=== PATIENT | male | born 1950 | race Caucasian/White ===

== ENCOUNTER 2022-06-24 18:04 | Inpatient (IN) | payer OTHER, MEDICARE ==
[2022-06-24] MEDS ORDERED: Morphine 2 MG/ML VIAL SLOW IVP PRN (18:59)
[2022-06-24] MEDS ORDERED: Dextrose 5% in Water 1,000 ML IV PRN (18:59)
[2022-06-24] MEDS ORDERED: Dextrose 50% Abboject 50 ML SYRINGE SLOW IVP PRN (18:59)
[2022-06-24] MEDS ORDERED: TETANUS, DIPHTHERIA TOX,ADULT (TDVAX) 0.5 ML VIAL IM ONE (18:59)
[2022-06-24] MEDS ORDERED: Ondansetron PF 4 MG/2 ML Vial IVP PRN (19:01)
[2022-06-24] MEDS ORDERED: Ondansetron ODT 4 MG TAB PO PRN (19:01)
[2022-06-24] MEDS ORDERED: traMADol HCl 50 MG TAB PO PRN (19:03)
[2022-06-24] MEDS ORDERED: Sodium Chloride 0.9% 1,000 ML IV SCH (19:15)
[2022-06-24 19:42] LABS: INR-International Normal Ratio 0.9; PTT 26.1 sec (22.9-36.1); Prothrombin Time 12.8 sec (12.0-14.7)
[2022-06-24] MEDS: Acetaminophen 325 MG TAB PO SCH (20:15)
[2022-06-24] MEDS: traMADol HCl 50 MG TAB PO SCH (20:15)
[2022-06-24] MEDS: Ibuprofen 200 MG TAB PO SCH (20:16)
[2022-06-24] MEDS: Famotidine 20 MG TAB PO SCH (20:16)
[2022-06-24] MEDS ORDERED: Oxazepam 10 MG CAP PO SCH (21:00)
[2022-06-24] MEDS ORDERED: Lactated Ringer's 1,000 ML IV SCH (23:00)
[2022-06-25 01:34] VITALS: BMI 21.2
[2022-06-25] MEDS: Acetaminophen 325 MG TAB PO SCH ×4 (02:44→21:17)
[2022-06-25] MEDS: traMADol HCl 50 MG TAB PO SCH ×4 (02:44→21:17)
[2022-06-25] MEDS: Ibuprofen 200 MG TAB PO SCH ×3 (04:25→21:15)
[2022-06-25 06:44] LABS: #Eosinphils 0.2 thou/uL (0.0-0.7); #Lymphocytes 0.8 thou/uL (1.20-3.40); #Monocytes 0.8 thou/uL (0.11-0.59); %Basophils 0.4 % (0.0-1.0); %Lymphocytes 10.7 % (21.0-51.0); %Neutrophils 76.9 % (42.0-75.0); Hemoglobin 12.7 g/dL (14.0-18.0); Mean Corpuscular HGB CONC 34.1 g/dL (32.0-36.0); Mean Corpuscular Hemoglobin 34.9 pg (27.0-31.0); Platelet Count 264 10x3/uL (130-400); RBC Distribution Width 12.2 % (11.5-14.5); Red Blood Cell (RBC) Count 3.64 mill/uL (4.70-6.10); White Blood Cell (WBC) Count 7.7 10x3/uL (4.8-10.8)
[2022-06-25 07:10] LABS: Anion Gap 14 mmol/L (10-20); BUN (Urea Nitrogen) 9 mg/dL (8.4-25.7); Calc. Creatinine Clearance 95 mL/min (70-130); Calcium 8.6 mg/dL (7.8-10.44); Carbon Dioxide 21 mmol/L (23-31); Chloride 90 mmol/L (98-107); Estimated GFR 101; Glucose 93 mg/dL (83-110); Magnesium 1.9 mg/dL (1.6-2.6); Phosphorus 3.1 mg/dL (2.3-4.7); Potassium 3.6 mmol/L (3.5-5.1); Sodium 121 mmol/L (136-145)
[2022-06-25] MEDS ORDERED: Sodium Chloride 0.9% 1,000 ML IV SCH (08:15)
[2022-06-25] MEDS ORDERED: CEFAZOLIN 2 GM in Sodium Chloride 0.9% 100 ML IVPB SCH (08:30)
[2022-06-25 10:12] LABS: Bacteria/HPF None Seen HPF (None Seen); Bilirubin Negative (Negative); Blood, Urine Negative (Negative); Clarity Clear (Clear); Glucose, Urine (Dipstick) 70 mg/dL (Negative); Ketone, Urine 20 mg/dL (Negative); Leukocyte Negative Leu/uL (Negative); Nitrite Negative (Negative); Protein, Urine (Dipstick) Negative (Neg-Trace); RBC/HPF 0-3 HPF (0-3); Specific Gravity, Urine 1.012 (1.002-1.036); Squamous Epithelial None Seen HPF (0-3); Urobilinogen Normal mg/dL (Less than 2); WBC/HPF 0-3 HPF (0-3); pH, Urine 6.5 (5.0-9.0)
[2022-06-25] MEDS: Ferrous Sulfate 325 MG TAB PO SCH ×2 (11:27→17:08)
[2022-06-25] MEDS: Oxazepam 10 MG CAP PO SCH ×3 (11:27→21:18)
[2022-06-25] MEDS: Ascorbic Acid 500 mg Chewable Tablet PO SCH (11:28)
[2022-06-25] MEDS: Tamsulosin HCl 0.4 MG CAP PO SCH (11:29)
[2022-06-25] MEDS: Famotidine 20 MG TAB PO SCH ×2 (11:32→21:17)
[2022-06-25] MEDS: Folic Acid 1 MG TAB PO SCH (15:16)
[2022-06-25] MEDS: Thiamine 100 MG TAB PO SCH (15:17)
[2022-06-26] MEDS: Ibuprofen 200 MG TAB PO SCH ×3 (02:55→22:41)
[2022-06-26] MEDS: Acetaminophen 325 MG TAB PO SCH ×5 (02:56→22:43)
[2022-06-26] MEDS: traMADol HCl 50 MG TAB PO SCH ×4 (02:56→22:42)
[2022-06-26 07:14] LABS: #Basophils 0.1 thou/uL (0.0-0.2); #Eosinphils 0.3 thou/uL (0.0-0.7); #Monocytes 0.9 thou/uL (0.11-0.59); #Neutrophils 4.7 thou/uL (1.40-6.50); %Basophils 0.8 % (0.0-1.0); %Eosinophils 4.8 % (0.0-10.0); %Lymphocytes 14.3 % (21.0-51.0); Hemoglobin 12.1 g/dL (14.0-18.0); Mean Corpuscular HGB CONC 35.6 g/dL (32.0-36.0); Mean Corpuscular Hemoglobin 36.9 pg (27.0-31.0); Mean Platelet Volume 6.1 fL (7.4-10.4); Platelet Count 209 10x3/uL (130-400); RBC Distribution Width 12.3 % (11.5-14.5); Red Blood Cell (RBC) Count 3.28 mill/uL (4.70-6.10); White Blood Cell (WBC) Count 7.1 10x3/uL (4.8-10.8)
[2022-06-26 08:22] LABS: Anion Gap 12 mmol/L (10-20); BUN (Urea Nitrogen) 13 mg/dL (8.4-25.7); Calc. Creatinine Clearance 88 mL/min (70-130); Calcium 8.3 mg/dL (7.8-10.44); Carbon Dioxide 22 mmol/L (23-31); Chloride 91 mmol/L (98-107); Estimated GFR 99; Glucose 102 mg/dL (83-110); Magnesium 1.9 mg/dL (1.6-2.6); Phosphorus 3.2 mg/dL (2.3-4.7); Potassium 3.4 mmol/L (3.5-5.1); Sodium 122 mmol/L (136-145)
[2022-06-26] MEDS ORDERED: Potassium Chloride 20 MEQ TAB PO SCH (09:00)
[2022-06-26] MEDS: Oxazepam 10 MG CAP PO SCH ×3 (09:26→22:41)
[2022-06-26] MEDS: Famotidine 20 MG TAB PO SCH ×2 (09:26→22:43)
[2022-06-26] MEDS: Tamsulosin HCl 0.4 MG CAP PO SCH (09:26)
[2022-06-26] MEDS: Ferrous Sulfate 325 MG TAB PO SCH ×2 (09:33→18:08)
[2022-06-26] MEDS: Folic Acid 1 MG TAB PO SCH ×2 (09:34→10:56)
[2022-06-26] MEDS: Thiamine 100 MG TAB PO SCH ×2 (09:34→10:56)
[2022-06-26] MEDS: Ascorbic Acid 500 mg Chewable Tablet PO SCH ×2 (09:34→10:56)
[2022-06-26] MEDS ORDERED: Sodium Phosphate 15 MMOL in Sodium Chloride 0.9% 250 ML 250 ML IVPB SCH (11:30)
[2022-06-26] MEDS ORDERED: Sodium Chloride 0.9% 100 ML ONE ×2 (11:54→12:27)
[2022-06-26] MEDS ORDERED: CEFAZOLIN 2 GM VIAL ONE ×2 (11:54→12:27)
[2022-06-26] MEDS ORDERED: fentaNYL PF 100 MCG/2 ML SYRINGE ONE (12:14)
[2022-06-26] MEDS ORDERED: NEOSTIGMINE 3 MG/3 ML SYR 3 MG/3 ML SYRINGE ONE (12:41)
[2022-06-26] MEDS ORDERED: Ondansetron PF 4 MG/2 ML Vial ONE (12:41)
[2022-06-26] MEDS ORDERED: Rocuronium Bromide 10 MG/ML (10ML VIAL) ONE (12:41)
[2022-06-26] MEDS ORDERED: Lidocaine 1% PF 5 ML VIAL ONE (12:41)
[2022-06-26] MEDS ORDERED: PHENYLEPHRINE-NS 100 MCG/ML 10 ML SYRINGE ONE (12:41)
[2022-06-26] MEDS ORDERED: Glycopyrrolate 0.2 MG/ML 5 ML SYRINGE ONE (12:41)
[2022-06-26] MEDS ORDERED: PROPOFOL 200 MG/20 ML VIAL ONE (12:41)
[2022-06-26] MEDS ORDERED: Ondansetron HCl/PF 4 MG/2 ML Vial IVP PRN (13:54)
[2022-06-26] MEDS ORDERED: Promethazine HCl 25 MG/ML VIAL IM PRN (13:54)
[2022-06-26 16:35] LABS: Potassium 4.1 mmol/L (3.5-5.1); Sodium 124 mmol/L (136-145)
[2022-06-26] MEDS ORDERED: Aspirin 81 mg Enteric Coated Tablet PO SCH (21:00)
[2022-06-26] MEDS: CEFAZOLIN 2 GM in Sodium Chloride 0.9% 100 ML IVPB SCH (22:41)
[2022-06-27] MEDS: traMADol HCl 50 MG TAB PO SCH ×4 (02:52→20:37)
[2022-06-27] MEDS: Acetaminophen 325 MG TAB PO SCH ×4 (02:52→20:36)
[2022-06-27] MEDS: Ibuprofen 200 MG TAB PO SCH ×3 (05:08→20:36)
[2022-06-27] MEDS: CEFAZOLIN 2 GM in Sodium Chloride 0.9% 100 ML IVPB SCH (05:08)
[2022-06-27 06:24] LABS: #Basophils 0.1 thou/uL (0.0-0.2); #Lymphocytes 0.6 thou/uL (1.20-3.40); #Neutrophils 6.7 thou/uL (1.40-6.50); %Basophils 0.6 % (0.0-1.0); %Eosinophils 0.2 % (0.0-10.0); %Lymphocytes 7.7 % (21.0-51.0); %Monocytes 11.4 % (0.0-10.0); Hemoglobin 11.3 g/dL (14.0-18.0); Mean Corpuscular HGB CONC 35.1 g/dL (32.0-36.0); Mean Corpuscular Hemoglobin 36.4 pg (27.0-31.0); Mean Platelet Volume 6.4 fL (7.4-10.4); Platelet Count 209 10x3/uL (130-400); RBC Distribution Width 12.1 % (11.5-14.5); Red Blood Cell (RBC) Count 3.11 mill/uL (4.70-6.10); White Blood Cell (WBC) Count 8.3 10x3/uL (4.8-10.8)
[2022-06-27 06:40] LABS: Phosphorus 3.3 mg/dL (2.3-4.7)
[2022-06-27 06:43] LABS: Anion Gap 12 mmol/L (10-20); BUN (Urea Nitrogen) 9 mg/dL (8.4-25.7); Calc. Creatinine Clearance 85 mL/min (70-130); Carbon Dioxide 19 mmol/L (23-31); Chloride 96 mmol/L (98-107); Potassium 4.3 mmol/L (3.5-5.1); Sodium 123 mmol/L (136-145)
[2022-06-27 06:44] LABS: Calcium 8.1 mg/dL (7.8-10.44); Estimated GFR 98; Glucose 131 mg/dL (83-110); Magnesium 1.9 mg/dL (1.6-2.6)
[2022-06-27] MEDS: Ferrous Sulfate 325 MG TAB PO SCH ×2 (09:21→20:52)
[2022-06-27] MEDS: Ascorbic Acid 500 mg Chewable Tablet PO SCH (09:21)
[2022-06-27] MEDS: Tamsulosin HCl 0.4 MG CAP PO SCH (09:21)
[2022-06-27] MEDS: Famotidine 20 MG TAB PO SCH ×2 (09:21→20:37)
[2022-06-27] MEDS: Oxazepam 10 MG CAP PO SCH ×3 (09:21→20:37)
[2022-06-27] MEDS: Folic Acid 1 MG TAB PO SCH (09:22)
[2022-06-27] MEDS: Thiamine 100 MG TAB PO SCH (09:22)
[2022-06-27] MEDS: Sodium Chloride 1 GM TAB PO SCH ×2 (11:56→20:37)
[2022-06-27 13:00] LABS: Anion Gap 15 mmol/L (10-20); BUN (Urea Nitrogen) 10 mg/dL (8.4-25.7); Calc. Creatinine Clearance 89 mL/min (70-130); Calcium 8.5 mg/dL (7.8-10.44); Carbon Dioxide 17 mmol/L (23-31); Chloride 95 mmol/L (98-107); Estimated GFR 99; Glucose 111 mg/dL (83-110); Potassium 4.4 mmol/L (3.5-5.1); Sodium 123 mmol/L (136-145)
[2022-06-27] MEDS ORDERED: diphenhydrAMINE 25 MG CAP PO SCH (20:00)
[2022-06-27] MEDS: Senokot S 8.6-50 MG TAB PO SCH (20:38)
[2022-06-28] MEDS: Acetaminophen 325 MG TAB PO SCH ×4 (01:26→16:00)
[2022-06-28] MEDS: traMADol HCl 50 MG TAB PO SCH ×3 (01:26→16:02)
[2022-06-28] MEDS: Ibuprofen 200 MG TAB PO SCH ×2 (05:01→14:43)
[2022-06-28] MEDS: Sodium Chloride 1 GM TAB PO SCH ×2 (05:01→16:01)
[2022-06-28 06:20] LABS: Band 6 % (5-11); Hemoglobin 10.6 g/dL (14.0-18.0); Hypochromia SLIGHT = 6-15 cells (100X) (0-5/hpf); Lymphocytes 20 % (21-51); MDiff Complete? YES; Macrocytosis SLIGHT = 6-15 cells (100X) (0-5/hpf); Mean Corpuscular HGB CONC 34.5 g/dL (32.0-36.0); Mean Corpuscular Hemoglobin 35.8 pg (27.0-31.0); Monocytes 12 % (0-10); Neutrophil 54 % (42-75); Platelet Count 224 10x3/uL (130-400); Platelet Morphology Comment Appears Adequate; RBC Distribution Width 12.4 % (11.5-14.5); Reactive Lymphocytes 8 % (0-10); Red Blood Cell (RBC) Count 2.96 mill/uL (4.70-6.10); White Blood Cell (WBC) Count 6.2 10x3/uL (4.8-10.8)
[2022-06-28 06:21] LABS: Anion Gap 12 mmol/L (10-20); BUN (Urea Nitrogen) 7 mg/dL (8.4-25.7); Calc. Creatinine Clearance 97 mL/min (70-130); Calcium 8.6 mg/dL (7.8-10.44); Carbon Dioxide 23 mmol/L (23-31); Chloride 99 mmol/L (98-107); Estimated GFR 102; Glucose 84 mg/dL (83-110); Potassium 4.1 mmol/L (3.5-5.1); Sodium 130 mmol/L (136-145)
[2022-06-28] MEDS ORDERED: Polyethylene Glycol 3350 17 GM Packet PO SCH (09:00)
[2022-06-28] MEDS: Thiamine 100 MG TAB PO SCH (09:23)
[2022-06-28] MEDS: Oxazepam 10 MG CAP PO SCH ×2 (09:23→16:13)
[2022-06-28] MEDS: Folic Acid 1 MG TAB PO SCH (09:23)
[2022-06-28] MEDS: Famotidine 20 MG TAB PO SCH (09:23)
[2022-06-28] MEDS: Ascorbic Acid 500 mg Chewable Tablet PO SCH (09:24)
[2022-06-28] MEDS: Ferrous Sulfate 325 MG TAB PO SCH (09:24)
[2022-06-28] MEDS: Tamsulosin HCl 0.4 MG CAP PO SCH (09:26)
[2022-06-28 11:54] VITALS: TEMP 97.9
[2022-06-28] MEDS: Senokot S 8.6-50 MG TAB PO SCH (14:42)
[2022-06-28 15:46] VITALS: BP 121/75
== END 2022-06-28 18:08 | disposition home or self-care (01) | DRG 522 ==
LOC: SURG A 18:17
PROVIDERS: ADMIT Student in an Organized Health Care Education/Training Program; ATTEND Student in an Organized Health Care Education/Training Program
PROC: 0SRS01A Replacement of Left Hip Joint, Femoral Surface with Metal Synthetic Substitute, Uncemented, Open Approach (ICD-10-PCS; principal; 2022-06-26)
PROC: 0PSJXZZ Reposition Left Radius, External Approach (ICD-10-PCS; 2022-06-26)
PROC: 0PSLXZZ Reposition Left Ulna, External Approach (ICD-10-PCS; 2022-06-26)
PROC: 2W3DX1Z Immobilization of Left Lower Arm using Splint (ICD-10-PCS; 2022-06-26)
DX: S72.002A Fracture of unspecified part of neck of left femur, initial encounter for closed fracture (principal); S52.502A Unspecified fracture of the lower end of left radius, initial encounter for closed fracture; S52.202A Unspecified fracture of shaft of left ulna, initial encounter for closed fracture; E87.1 Hypo-osmolality and hyponatremia; E87.20 Acidosis, unspecified; E87.8 Other disorders of electrolyte and fluid balance, not elsewhere classified; W01.0XXA Fall on same level from slipping, tripping and stumbling without subsequent striking against object, initial encounter; I12.9 Hypertensive chronic kidney disease with stage 1 through stage 4 chronic kidney disease, or unspecified chronic kidney disease; N18.1 Chronic kidney disease, stage 1; D63.1 Anemia in chronic kidney disease; F10.10 Alcohol abuse, uncomplicated; E87.6 Hypokalemia; F17.210 Nicotine dependence, cigarettes, uncomplicated
CPT/HCPCS: 36415; 71045; 72170; 80048; 80053; 81001; 83735; 83930; 83935; 84100; 84300; 84443; 85025; 85610; 85730; 93005; 96374; C1776; J1650; J1885; J2270; J2405; J2704; J3490; J7050

== ENCOUNTER 2023-03-21 10:15 | Outpatient (CLI) | payer MEDICARE | END 2023-03-21 10:16 | LOC: PET 10:15 | PROVIDERS: ATTEND Otolaryngology | DX: C79.9 Secondary malignant neoplasm of unspecified site (principal); R59.0 Localized enlarged lymph nodes; K14.8 Other diseases of tongue | CPT/HCPCS: 78815; A9552 ==

== ENCOUNTER 2023-08-10 21:06 | Observation (INO) | payer MEDICARE ==
[2023-08-10] MEDS ORDERED: Ondansetron ODT 4 MG TAB PO PRN (22:05)
[2023-08-10] MEDS ORDERED: Ondansetron PF 4 MG/2 ML Vial IVP PRN (22:05)
[2023-08-10] MEDS ORDERED: Acetaminophen 650 MG Suppository PR PRN (22:05)
[2023-08-10] MEDS ORDERED: Acetaminophen 325 MG TAB PO PRN (22:05)
[2023-08-10] MEDS: Tamsulosin HCl 0.4 MG CAP PO SCH (22:44)
[2023-08-10] MEDS: Sodium Chloride 0.9% 1,000 ML IV SCH (22:44)
[2023-08-10 23:30] LABS: Lactic Acid 1.6 mmol/L (0.5-2.2)
[2023-08-11] MEDS ORDERED: Polyethylene Glycol 3350 17 GM Packet PO SCH (01:15)
[2023-08-11] MEDS: Polyethylene Glycol 3350 17 GM Packet PO SCH ×2 (04:07→09:11)
[2023-08-11] MEDS: Amlodipine 5 MG TAB PO SCH (04:07)
[2023-08-11 06:15] LABS: Anion Gap 12 mmol/L (10-20); BUN (Urea Nitrogen) 10 mg/dL (8.4-25.7); Calc. Creatinine Clearance 92 mL/min (70-130); Calcium 7.9 mg/dL (7.8-10.44); Carbon Dioxide 21 mmol/L (23-31); Chloride 111 mmol/L (98-107); Estimated GFR 102; Glucose 106 mg/dL (83-110); Potassium 3.2 mmol/L (3.5-5.1); Sodium 141 mmol/L (136-145)
[2023-08-11 07:03] LABS: Hematocrit 22.2 % (42.0-52.0); Hemoglobin 7.3 g/dL (14.0-18.0); Mean Corpuscular HGB CONC 32.9 g/dL (32.0-36.0); Mean Corpuscular Hemoglobin 36.9 pg (27.0-31.0); Mean Corpuscular Volume 112.1 fL (78.0-98.0); Mean Platelet Volume 11.2 fL (7.4-10.4); Platelet Count 96 10x3/uL (130-400); RBC Distribution Width 21.3 % (11.5-14.5); Red Blood Cell (RBC) Count 1.98 mill/uL (4.70-6.10)
[2023-08-11 07:55] LABS: Anisocytosis SLIGHT = 6-15 cells HPF (0-5); Band 5 % (5-11); Burr Cells SLIGHT = 2-5 cells HPF (0-1); Large Platelets 7.1 % (0-5); Lymphocytes 26 % (21-51); Macrocytosis SLIGHT = 6-15 cells HPF (0-5); Monocytes 5 % (0-10); Neutrophil 64 % (42-75); Platelet Adequacy Comment Significant Decrease; Polychromasia SLIGHT = 2-3 cells HPF (0-2); Schistocytes SLIGHT = 2-5 cells HPF (0-1)
[2023-08-11 11:55] VITALS: BP 114/64; TEMP 98
[2023-08-11] MEDS ORDERED: Amlodipine 5 MG TAB PO SCH (21:00)
[2023-08-11] MEDS ORDERED: Tamsulosin HCl 0.4 MG CAP PO SCH (21:00)
== END 2023-08-11 14:30 | disposition home or self-care (01) ==
LOC: SURG B 21:06
PROVIDERS: ADMIT Student in an Organized Health Care Education/Training Program; ATTEND Family Medicine
DX: R33.9 Retention of urine, unspecified (principal); J93.9 Pneumothorax, unspecified; D50.9 Iron deficiency anemia, unspecified; C06.9 Malignant neoplasm of mouth, unspecified; I10 Essential (primary) hypertension; Z79.899 Other long term (current) drug therapy
CPT/HCPCS: 71045 ×2; 80048; 80053; 81001; 83605; 85025 ×2; 87040; J2543; J7050; 36415; G0378

== ENCOUNTER 2023-08-17 10:21 | Inpatient (IN) | payer MEDICARE ==
[2023-08-17] MEDS ORDERED: Cefepime 2 GM VIAL ONE (10:52)
[2023-08-17] MEDS ORDERED: Sodium Chloride 0.9% 100 ML ONE (10:52)
[2023-08-17 11:31] LABS: Hematocrit 22.3 % (42.0-52.0); Hemoglobin 7.2 g/dL (14.0-18.0); Mean Corpuscular HGB CONC 32.3 g/dL (32.0-36.0); Mean Corpuscular Hemoglobin 36.5 pg (27.0-31.0); Mean Corpuscular Volume 113.2 fL (78.0-98.0); Mean Platelet Volume 11.4 fL (7.4-10.4); Platelet Count 297 10x3/uL (130-400); RBC Distribution Width 21.8 % (11.5-14.5); Red Blood Cell (RBC) Count 1.97 mill/uL (4.70-6.10)
[2023-08-17 11:40] LABS: ALT (SGPT) 10 U/L (8-55); AST (SGOT) 32 U/L (5-34); Albumin 2.6 g/dL (3.4-4.8); Alkaline Phosphatase 42 U/L (40-110); Anion Gap 16 mmol/L (10-20); BUN (Urea Nitrogen) 15 mg/dL (8.4-25.7); Bilirubin, Total 0.6 mg/dL (0.2-1.2); Calc. Creatinine Clearance 0 mL/min (70-130); Carbon Dioxide 20 mmol/L (23-31); Chloride 103 mmol/L (98-107); Estimated GFR 94; Globulin 2.3 g/dL (2.4-3.5); Glucose 108 mg/dL (83-110); Potassium 4.3 mmol/L (3.5-5.1); Protein, Total 4.9 g/dL (5.8-8.1); Sodium 135 mmol/L (136-145)
[2023-08-17 11:47] LABS: Critical Call Chem Troponin I NUR.CT6@1147; Troponin I 0.421 ng/mL (< 0.028)
[2023-08-17] MEDS ORDERED: Vancomycin 1 GM/200 ML (FROZEN) BAG ONE (11:54)
[2023-08-17 11:59] LABS: Band 7 % (5-11); Burr Cells SLIGHT = 2-5 cells HPF (0-1); Giant Platelets 2.8 % (0-5); Large Platelets 19.4 % (0-5); Lymphocytes 7 % (21-51); Macrocytosis SLIGHT = 6-15 cells HPF (0-5); Monocytes 1 % (0-10); Neutrophil 82 % (42-75); Nucleated RBC (Manual Ct) 5 % (0); Platelet Adequacy Comment Platelets Normal; Polychromasia SLIGHT = 2-3 cells HPF (0-2); Schistocytes SLIGHT = 2-5 cells HPF (0-1)
[2023-08-17 12:33] LABS: Bacteria/HPF None Seen HPF (None Seen); Bilirubin Negative (Negative); Blood, Urine 2+ (Negative); CAUTI Indications for Culture Alt mental st,lethar; Clarity Clear (Clear); Glucose, Urine (Dipstick) Normal (Negative); Ketone, Urine Negative (Negative); Leukocyte Negative Leu/uL (Negative); Nitrite Negative (Negative); Protein, Urine (Dipstick) 20 mg/dL (Neg-Trace); Specific Gravity, Urine 1.018 (1.002-1.036); Squamous Epithelial None Seen HPF (0-3); Urobilinogen Normal mg/dL (Less than 2); WBC/HPF 0-3 HPF (0-3); pH, Urine 5.5 (5.0-9.0)
[2023-08-17 12:35] LABS: Urine Culture Reflex No No
[2023-08-17 12:40] LABS: Influenza A by NAA Not Detected (NotDetected); Influenza B by NAA Not Detected (NotDetected); SARS-CoV-2 NAA Rapid Test Not Detected (NotDetected)
[2023-08-17] MEDS ORDERED: Aspirin Chewable 81 MG TAB ONE (12:49)
[2023-08-17] MEDS ORDERED: Calcium Carbonate 500 MG ChewTAB PO PRN (13:16)
[2023-08-17] MEDS ORDERED: Ondansetron PF 4 MG/2 ML Vial IVP PRN (13:16)
[2023-08-17] MEDS ORDERED: Senokot S 8.6-50 MG TAB PO PRN (13:16)
[2023-08-17] MEDS ORDERED: Ipratropium/Albuterol 3 ML NEB NEB PRN (13:29)
[2023-08-17 15:00] VITALS: BMI 22.9
[2023-08-17] MEDS: Lactated Ringer's 1,000 ML IV SCH (15:06)
[2023-08-17] MEDS: Albumin 25% 25 GM (100 mL) BOT IVPB SCH ×2 (15:06)
[2023-08-17 15:48] LABS: Lactic Acid 3.2 mmol/L (0.5-2.2)
[2023-08-17] MEDS: Vancomycin HCl 500 MG in Sodium Chloride 0.9% 100 ML IVPB SCH (17:55)
[2023-08-17] MEDS: Tamsulosin HCl 0.4 MG CAP PO SCH (20:25)
[2023-08-17] MEDS: Famotidine/PF 20 mg/2ml Vial SLOW IVP SCH (20:25)
[2023-08-17] MEDS: Dexamethasone 0.5 MG/5 ML UDCUP PO SCH (20:29)
[2023-08-17] MEDS ORDERED: Vancomycin 1 GM in Premix 1 BAG IVPB SCH (21:00)
[2023-08-17] MEDS ORDERED: Cefepime 1 GM in Sodium Chloride 0.9% 100 ML IVPB SCH (23:00)
[2023-08-17] MEDS: Cefepime 2 GM in Sodium Chloride 0.9% 100 ML IVPB SCH (23:06)
[2023-08-17] MEDS: Vancomycin 1 GM in Premix 1 BAG IVPB SCH (23:38)
[2023-08-18 04:24] LABS: Hemoglobin 5.5 g/dL (14.0-18.0); Mean Corpuscular HGB CONC 32.4 g/dL (32.0-36.0); Mean Corpuscular Hemoglobin 36.9 pg (27.0-31.0); Mean Corpuscular Volume 114.1 fL (78.0-98.0); Mean Platelet Volume 11.3 fL (7.4-10.4); Platelet Count 211 10x3/uL (130-400); RBC Distribution Width 21.2 % (11.5-14.5); Red Blood Cell (RBC) Count 1.49 mill/uL (4.70-6.10)
[2023-08-18 04:38] LABS: Vancomycin, Random 22.1 ug/mL (See Comment)
[2023-08-18 04:39] LABS: ALT (SGPT) 22 U/L (8-55); AST (SGOT) 51 U/L (5-34); Albumin 2.8 g/dL (3.4-4.8); Alkaline Phosphatase 32 U/L (40-110); Anion Gap 13 mmol/L (10-20); BUN (Urea Nitrogen) 14 mg/dL (8.4-25.7); Bilirubin, Total 0.7 mg/dL (0.2-1.2); Calc. Creatinine Clearance 88 mL/min (70-130); Calcium 7.6 mg/dL (7.8-10.44); Carbon Dioxide 22 mmol/L (23-31); Chloride 101 mmol/L (98-107); Estimated GFR 102; Globulin 1.7 g/dL (2.4-3.5); Glucose 105 mg/dL (83-110); Protein, Total 4.5 g/dL (5.8-8.1); Sodium 132 mmol/L (136-145)
[2023-08-18 05:34] LABS: Anisocytosis MARKED = >30 cells HPF (0-5); Large Platelets 55.6 % (0-5); Lymphocytes 11 % (21-51); Macrocytosis MODERATE=16-30 cells HPF (0-5); Neutrophil 89 % (42-75); Ovalocytes SLIGHT = 2-5 cells HPF (0-1); Platelet Adequacy Comment Platelets Normal; Poikilocytosis SLIGHT = 6-15 cells HPF (0-5); Polychromasia SLIGHT = 2-3 cells HPF (0-2); Smudge Cells 11.1 %
[2023-08-18] MEDS: Cefepime 2 GM in Sodium Chloride 0.9% 100 ML IVPB SCH (08:17)
[2023-08-18] MEDS: Dexamethasone 0.5 MG/5 ML UDCUP PO SCH (08:18)
[2023-08-18] MEDS: Aspirin 81 mg Enteric Coated Tablet PO SCH (08:19)
[2023-08-18] MEDS: Polyethylene Glycol 3350 17 GM Packet PO SCH (08:19)
[2023-08-18] MEDS: Enoxaparin 40 MG (0.4 mL) SYRINGE SC SCH (08:19)
[2023-08-18 13:51] LABS: Hematocrit 22.9 % (42.0-52.0); Hemoglobin 7.9 g/dL (14.0-18.0); Mean Corpuscular HGB CONC 34.5 g/dL (32.0-36.0); Mean Corpuscular Hemoglobin 34.6 pg (27.0-31.0); Mean Corpuscular Volume 100.4 fL (78.0-98.0); Mean Platelet Volume 11.3 fL (7.4-10.4); Platelet Count 214 10x3/uL (130-400); RBC Distribution Width 23.4 % (11.5-14.5); Red Blood Cell (RBC) Count 2.28 mill/uL (4.70-6.10)
[2023-08-18 14:24] LABS: Anisocytosis SLIGHT = 6-15 cells HPF (0-5); Band 11 % (5-11); Hypochromia SLIGHT = 6-15 cells HPF (0-5); Large Platelets 13.6 % (0-5); Lymphocytes 16 % (21-51); Macrocytosis SLIGHT = 6-15 cells HPF (0-5); Monocytes 4 % (0-10); Neutrophil 70 % (42-75); Platelet Adequacy Comment Platelets Normal; Poikilocytosis SLIGHT = 6-15 cells HPF (0-5); Polychromasia SLIGHT = 2-3 cells HPF (0-2); Schistocytes SLIGHT = 2-5 cells HPF (0-1)
[2023-08-18 18:44] VITALS: BMI 22.9
[2023-08-18] MEDS: HYDROcodone/Acetaminophen 5/325 mg Tablet PO PRN (19:14)
[2023-08-19] MEDS: Acetaminophen 325 MG TAB PO PRN (10:31)
[2023-08-19 12:53] LABS: #Basophils Less than 0.03 10x3/uL (0.0-0.2); #Eosinphils Less than 0.03 10x3/uL (0.0-0.7); %Basophils 0.5 % (0.0-1.0); %Lymphocytes 11.1 % (21.0-51.0); %Monocytes 4.2 % (0.0-10.0); %Neutrophils 82.6 % (42.0-75.0); Hematocrit 25.6 % (42.0-52.0); Hemoglobin 8.8 g/dL (14.0-18.0); Mean Corpuscular HGB CONC 34.4 g/dL (32.0-36.0); Mean Corpuscular Hemoglobin 33.8 pg (27.0-31.0); Mean Corpuscular Volume 98.5 fL (78.0-98.0); Mean Platelet Volume 11.2 fL (7.4-10.4); Platelet Count 221 10x3/uL (130-400)
[2023-08-19 13:19] LABS: ALT (SGPT) 32 U/L (8-55); AST (SGOT) 53 U/L (5-34); Albumin 3.3 g/dL (3.4-4.8); Alkaline Phosphatase 38 U/L (40-110); Anion Gap 15 mmol/L (10-20); BUN (Urea Nitrogen) 16 mg/dL (8.4-25.7); Bilirubin, Total 0.8 mg/dL (0.2-1.2); Calc. Creatinine Clearance 82 mL/min (70-130); Calcium 8.7 mg/dL (7.8-10.44); Carbon Dioxide 24 mmol/L (23-31); Chloride 98 mmol/L (98-107); Estimated GFR 99; Glucose 131 mg/dL (83-110); Potassium 4.1 mmol/L (3.5-5.1); Protein, Total 5.3 g/dL (5.8-8.1); Sodium 133 mmol/L (136-145)
[2023-08-19 13:23] LABS: Band 30 % (5-11); Large Platelets 17.8 % (0-5); Lymphocytes 9 % (21-51); Metamyelocyte 6 % (0-0); Monocytes 1 % (0-10); Neutrophil 54 % (42-75); Nucleated RBC (Manual Ct) 1 % (0); Platelet Adequacy Comment Platelets Normal; Polychromasia SLIGHT = 2-3 cells HPF (0-2)
[2023-08-20 06:25] LABS: Vancomycin, Random 29.9 ug/mL (See Comment)
[2023-08-20 11:45] LABS: Hematocrit 26.3 % (42.0-52.0); Hemoglobin 9.2 g/dL (14.0-18.0); Mean Corpuscular Hemoglobin 34.5 pg (27.0-31.0); Mean Corpuscular Volume 98.5 fL (78.0-98.0); Mean Platelet Volume 11.3 fL (7.4-10.4); Platelet Count 232 10x3/uL (130-400); RBC Distribution Width 21.7 % (11.5-14.5); Red Blood Cell (RBC) Count 2.67 mill/uL (4.70-6.10)
[2023-08-20 11:50] LABS: Anisocytosis SLIGHT = 6-15 cells HPF (0-5); Band 9 % (5-11); Burr Cells SLIGHT = 2-5 cells HPF (0-1); Hypochromia SLIGHT = 6-15 cells HPF (0-5); Large Platelets 22.6 % (0-5); Lymphocytes 20 % (21-51); Macrocytosis SLIGHT = 6-15 cells HPF (0-5); Monocytes 2 % (0-10); Neutrophil 69 % (42-75); Ovalocytes SLIGHT = 2-5 cells HPF (0-1); Platelet Adequacy Comment Platelets Normal; Smudge Cells 12.3 %
[2023-08-20 11:52] VITALS: BP 130/76
[2023-08-20] MEDS: Vancomycin HCl 750 MG in Sodium Chloride 0.9% 250 ML 250 ML IVPB SCH (11:52)
[2023-08-20 19:01] VITALS: TEMP 97.7
== END 2023-08-20 18:05 | disposition home or self-care (01) | DRG 871 ==
LOC: ERS 10:21 → IMCU/EMU 14:50
PROVIDERS: ADMIT Family Medicine; ATTEND Internal Medicine
PROC: 3E03329 Introduction of Other Anti-infective into Peripheral Vein, Percutaneous Approach (ICD-10-PCS; 2023-08-17)
PROC: 30233J1 Transfusion of Nonautologous Serum Albumin into Peripheral Vein, Percutaneous Approach (ICD-10-PCS; 2023-08-17)
PROC: 30233N1 Transfusion of Nonautologous Red Blood Cells into Peripheral Vein, Percutaneous Approach (ICD-10-PCS; principal; 2023-08-18)
DX: A41.1 Sepsis due to other specified staphylococcus (principal); D61.810 Antineoplastic chemotherapy induced pancytopenia; G93.41 Metabolic encephalopathy; R65.21 Severe sepsis with septic shock; I21.A1 Myocardial infarction type 2; C77.0 Secondary and unspecified malignant neoplasm of lymph nodes of head, face and neck; C79.89 Secondary malignant neoplasm of other specified sites; E44.0 Moderate protein-calorie malnutrition; Z66 Do not resuscitate; C02.9 Malignant neoplasm of tongue, unspecified; I10 Essential (primary) hypertension; D70.9 Neutropenia, unspecified; R50.81 Fever presenting with conditions classified elsewhere; R33.9 Retention of urine, unspecified; T45.1X5A Adverse effect of antineoplastic and immunosuppressive drugs, initial encounter; R13.10 Dysphagia, unspecified; D64.9 Anemia, unspecified; F17.210 Nicotine dependence, cigarettes, uncomplicated; J44.9 Chronic obstructive pulmonary disease, unspecified; Z79.82 Long term (current) use of aspirin; Z79.899 Other long term (current) drug therapy; Z68.23 Body mass index [BMI] 23.0-23.9, adult
CPT/HCPCS: 36415; 36416; 36430; 70450; 71045; 80053; 80202; 81001; 83605; 84484; 85025; 86850; 86900; 86901; 87040; 87077; 87081; 87086; 87149; 87186; 93005; 93306; 96361; 96365; 96367; G0103; J0692; J3370; J3370-JW; J3490; J7050; J7120; P9016; P9047; S0028